=== PATIENT | male | born 1950 | race Caucasian/White ===

== ENCOUNTER 2017-04-20 15:38 | Emergency (ER) | payer BC ==
[~2017-04-20] VITALS: Ht 175.3 cm; Wt 106.8 kg
[~2017-04-20 15:38] MED LIST: ASPIRIN 81M81 MG/TA2 PO; COREG12.5 MG PO; CRESTOR 10MG10 MG PO; DEXILANT60 MG PO; FLEXERIL 1010 MG/TAB PO; GLUCOPHAGE XR500 M1 PO; HYGROTON 2525 MG/TAB PO; NEXIUM24HROTC PO; NORCO 325 MG-51 TAB PO; PERCOCET 325 MG1 TA2 PO; ULTRAM 50MG TAB50 MG PO; ZESTRIL 10MG10 MG PO; ZOCOR 40MG40 MG PO
[2017-04-20 15:39] VITALS: TEMP 98.2
[2017-04-20] MEDS ORDERED: PRIL40 PO (16:03)
[2017-04-20] MEDS ORDERED: PRINZIDE 12.5 M1 TA1 PO (16:04)
[2017-04-20] MEDS ORDERED: FLOMAX 0.40.4 MG/CAP PO (16:05)
[2017-04-20] MEDS ORDERED: MUCINEX 60600 MG/TA1 PO (16:06)
[2017-04-20] MEDS ORDERED: ALLEGRA-D TABLE1 TAB PO (16:06)
[2017-04-20] MEDS ORDERED: FLONASEALLERGY NS (16:06)
[2017-04-20 16:15] LABS: BASO # 0.1 (0.0-0.2); BASO % 0.5 % (0.0-2.0); EOS # 0.4 (0.0-0.7); EOS % 4.5 % (0-4.0); GRAN # 4.9 (1.4-6.5); GRAN % 53.3 % (42.2-75.2); HEMATOCRIT 39.6 % (42.0-52.0); HEMOGLOBIN 13.7 g/dl (13.5-18.0); LYMPH # 3.2 (1.2-3.4); LYMPH % 34.7 % (20.0-51.0); MEAN CELL VOLUME 86 fl (80.0-100.0); MEAN CORPUSCULAR HEMOGLOBIN 30 pg (27.0-31.0); MEAN CORPUSCULAR HGB CONC 35 g/dl (33.0-37.0); MEAN PLATELET VOLUME 10.2 fl (7.4-10.4); MONO # 0.6 (0.1-0.6); MONO % 6.5 % (1.7-9.3); PLATELET COUNT 204 K/mm3 (130-400); RED BLOOD COUNT 4.61 M/mm3 (4.20-5.60); REDCELL DISTRIBUTION WIDTH-CV 12.3 % (11.5-14.5); WHITE BLOOD COUNT 9.3 K/mm3 (4.8-10.8)
[2017-04-20 16:31] LABS: ADJUSTED CALCIUM 8.7 mg/dL (8.4-10.2); ALANINE AMINOTRANSFERASE 65 U/L (21-72); ALBUMIN 4.5 gm/dL (3.5-5.0); ALKALINE PHOSPHATASE 62 U/L (50-136); ANION GAP 17 mmol/L (7-16); BILIRUBIN,TOTAL 1.2 mg/dL (0.0-1.0); BLOOD UREA NITROGEN 14 mg/dL (9-20); CALCIUM 9.1 mg/dL (8.4-10.2); CARBON DIOXIDE 21 mmol/L (22-30); CHLORIDE 90 mmol/L (98-107); CREATININE, serum 0.69 mg/dL (0.66-1.25); GLUCOSE 92 mg/dL (74-106); SODIUM 128 mmol/L (137-145); TOTAL PROTEIN 7.3 gm/dL (6.4-8.2)
[2017-04-20 16:35] LABS: C-REACTIVE PROTEIN < 0.5 mg/dL (0.0-0.9)
[2017-04-20 16:42] LABS: TROPONIN-I < 0.012 ng/mL (0.000-0.034)
[2017-04-20 17:17] VITALS: BP 137/77; PULSE 80
== END 2017-04-20 17:18 | disposition home or self-care (01) ==
LOC: COL.ER 15:38
PROVIDERS: Family Medicine
DX: E87.1 Hypo-osmolality and hyponatremia (principal); I11.0 Hypertensive heart disease with heart failure; I50.9 Heart failure, unspecified; E11.9 Type 2 diabetes mellitus without complications; Z87.891 Personal history of nicotine dependence; Z79.82 Long term (current) use of aspirin; Z79.84 Long term (current) use of oral hypoglycemic drugs
CPT/HCPCS: J7030

== ENCOUNTER 2017-10-13 13:08 | Emergency (ER) | payer BC, MEDICARE ==
[~2017-10-13] VITALS: Ht 175.3 cm; Wt 108.6 kg
[~2017-10-13 13:08] MED LIST changes: +ALLEGRA-D TABLE1 TAB PO; +FLOMAX 0.40.4 MG/CAP PO; +FLONASEALLERGY NS; +MUCINEX 60600 MG/TA1 PO; +PRIL40 PO; +PRINZIDE 12.5 M1 TA1 PO
[2017-10-13 13:13] VITALS: BP 153/79; PULSE 75; TEMP 98
[2017-10-13] MEDS ORDERED: MUCINEX DM 30 M1 TE1 PO (14:23)
[2017-10-13] MEDS ORDERED: SUDAFED30 MG PO (14:24)
[2017-10-13 14:26] LABS: BASO % 0.5 % (0.0-2.0); EOS # 0.2 (0.0-0.7); EOS % 2.7 % (0-4.0); GRAN # 2.7 (1.4-6.5); GRAN % 49.4 % (42.2-75.2); HEMATOCRIT 38.6 % (42.0-52.0); HEMOGLOBIN 12.9 g/dl (13.5-18.0); LYMPH # 1.8 (1.2-3.4); LYMPH % 32.6 % (20.0-51.0); MEAN CELL VOLUME 84 fl (80.0-100.0); MEAN CORPUSCULAR HEMOGLOBIN 28 pg (27.0-31.0); MEAN CORPUSCULAR HGB CONC 33 g/dl (33.0-37.0); MEAN PLATELET VOLUME 9.7 fl (7.4-10.4); MONO # 0.7 (0.1-0.6); MONO % 13.2 % (1.7-9.3); PLATELET COUNT 201 K/mm3 (130-400); RED BLOOD COUNT 4.58 M/mm3 (4.20-5.60); WHITE BLOOD COUNT 5.6 K/mm3 (4.8-10.8)
[2017-10-13 14:46] LABS: ADJUSTED CALCIUM 9.3 mg/dL (8.4-10.2); BILIRUBIN,TOTAL 0.6 mg/dL (0.0-1.0); C-REACTIVE PROTEIN 0.6 mg/dL (0.0-0.9); CALCIUM 9.3 mg/dL (8.4-10.2); CREATININE, serum 0.71 mg/dL (0.66-1.25); POTASSIUM 4.1 mmol/L (3.4-5.0); TOTAL PROTEIN 6.5 gm/dL (6.4-8.2)
[2017-10-13] MEDS ORDERED: CLEOCIN HCL300 MG PO (17:04)
== END 2017-10-13 17:21 | disposition home or self-care (01) ==
LOC: COL.ER 13:08
PROVIDERS: Emergency Medicine
DX: R68.84 Jaw pain (principal); R22.1 Localized swelling, mass and lump, neck; E11.9 Type 2 diabetes mellitus without complications; I10 Essential (primary) hypertension; N40.0 Benign prostatic hyperplasia without lower urinary tract symptoms; Z90.49 Acquired absence of other specified parts of digestive tract; Z79.84 Long term (current) use of oral hypoglycemic drugs; Z79.82 Long term (current) use of aspirin
CPT/HCPCS: J7030; J7050; Q9967

== ENCOUNTER → 2018-05-05 | Outpatient (CLI) | payer BC ==
[~2018-05-05] MED LIST changes: +CLEOCIN HCL300 MG PO; +MUCINEX DM 30 M1 TE1 PO; +SUDAFED30 MG PO
== END ==
LOC: COL.RAD 09:41
DX: Z13.6 Encounter for screening for cardiovascular disorders (principal)